=== PATIENT | female | born 1970 | race African-American/Black ===

== ENCOUNTER 2018-06-11 21:35 | Emergency (ER) | payer OTHER ==
[~2018-06-11] VITALS: Ht 167.6 cm; Wt 111.1 kg
[2018-06-11 21:45] VITALS: BP 129/84
--- NOTE | 2018-06-11 21:56 | NUR ---
REPORT TO PIEDAD DIANA WHO ASSUMED CARE OF PT.
[2018-06-11] MEDS ORDERED: DEXAMETHASONE 4 MG TABLET ONE ×2 (22:21→22:25)
[2018-06-11] MEDS ORDERED: AMOXICILLIN 500 MG CAPSULE PO ONE (22:30)
[2018-06-11] MEDS ORDERED: DEXAMETHASONE 4 MG TABLET PO ONE (22:30)
[2018-06-11] MEDS ORDERED: ACETAMINOPHEN 500 MG TABLET ONE (22:37)
[2018-06-11] MEDS ORDERED: ACETAMINOPHEN 500 MG TABLET PO ONE (22:40)
== END 2018-06-11 23:08 | disposition home or self-care (01) ==
LOC: ED 22:50
DX: J02.0 Streptococcal pharyngitis (principal); Z86.718 Personal history of other venous thrombosis and embolism
CPT/HCPCS: 99284